=== PATIENT | female | born 1960 | race Caucasian/White ===

== ENCOUNTER 2018-06-18 12:23 | Day surgery (SDC) | payer MEDICARE ==
[~2018-06-18 12:23] MED LIST: BUPIV. HCL 0.5% (5MG/ML)/EPI. (1:200,000) PF 30 ML VIAL IJ ONE; DEXAMETHASONE SODIUM PHOSPHATE 10 MG/ML VIAL ONE; GELATIN SPONGE,ABSORB/PORCINE (SIZE 100) 1 EACH SPONGE TP ONE; GLYCOPYRROLATE 0.2 MG/1 ML 1 ML ONE; LACTATED RINGERS 1,000 ML IV.SOLN IV ONE; LEVALBUTEROL NEB 1.25 MG/3 ML VIAL.NEB NEB ONE; LIDOCAINE HCL 2% PF 100MG/5ML VIAL IJ ONE; MIDAZOLAM HCL 2 MG/2 ML VIAL ONE; NORMAL SALINE 1,000 ML IV.SOLN IV ONE; ONDANSETRON HCL/PF 4 MG/ 2ML VIAL ONE; PROPOFOL 200 MG/20 ML VIAL IV ONE; ROCURONIUM BROMIDE 10 MG/ML 5ML VIAL ONE; SEVOFLURANE 250 ML LIQUID IH ONE; SUGAMMADEX SODIUM 200 MG/2 ML VIAL IV ONE; THROMBIN (BOVINE) 20,000 UNIT VIAL TP ONE; ceFAZolin SODIUM 1 GM VIAL ONE; methylPREDNISolone ACETATE 80 MG/ML VIAL IM ONE
[2018-06-18] MEDS ORDERED: fentaNYL CITRATE/PF 100 MCG/2 ML INJ. ONE (18:05)
--- NOTE | 2018-08-10 13:57 | Operative Note ---
PREOPERATIVE DIAGNOSIS: Lumbar spinal stenosis, L3-4, with bilateral foraminal stenosis. POSTOPERATIVE DIAGNOSIS: Lumbar spinal stenosis, L3-4, with bilateral foraminal stenosis. PROCEDURES PERFORMED: 1. Left-sided laminotomy, L3-4, with foraminotomy and partial facetectomy. 2. Left-sided exposure, right-sided sublaminar laminotomy with foraminotomy and partial facetectomy. 3. Use of operating microscope and microsurgical technique. 4. Intraoperative fluoroscopy and interpretation for needle placement. 5. Lumbar epidural steroid injection. SURGEON: Juan Foster Jr., M.D. GYMNASTIC TEACHER: None. ANESTHESIA: General. COMPLICATIONS: None. CONDITION FOLLOWING THE PROCEDURE: Good. OPERATIVE FINDINGS: This patient is suffering from severe stenosis centrally in the bilateral neural foramen at the L3-4 level. She is counseled regarding options, having failed prolonged conservative management, and today is undergoing laminotomy, foraminotomy and decompression using minimally invasive techniques. DESCRIPTION OF PROCEDURE: The patient is taken to the operating room and general anesthetic induced. The patient was placed in the prone position and the back was thoroughly scrubbed, sterilely prepped and draped. C-arm fluoroscopy was brought into position to identify the surgical level. A Tuohy needle was then placed adjacent to the paraspinous process of the lumbar spine and driven down to the base of the posterior spinous process. X-rays were taken to confirm vertical direction of the needle and identification of the L3-4 level for surgical care. When the Touhy needle was found to be placed and replaced in the ideal position, skin blankenship were made and the skin was infiltrated with 0.5% Marcaine with epinephrine. A 2-cm transverse incision was then made adjacent to the affected side of the lumbar spine at the affected level. The scalpel blade was then inserted through the subcutaneous tissue and, in a vertical direction, the lumbar fascia was incised through the transverse incision of the skin. Next, the smallest obturator for the cylindrical retractor set was inserted into the skin and through the division of the lumbar fascia down to the palpable inferior aspect of the lamina of the affected level. This was followed by progressive dilators and ended with a cylindrical retractor being placed down to the affected lamina. Its accurate placement was again confirmed radiographically by AP and lateral x-rays intraoperatively. The dilators were then removed, leaving the cylindrical retractor in place at the desired surgical level. High power magnification was then brought into the surgical field and utilized through the cylindrical retractor for the following microsurgical technique application and dissection. The thin muscular cuff remaining over the lamina was removed with a combination of pituitary rongeurs and electrocautery to control hemostasis. Typically, both monopolar and bipolar electrocautery are used for this purpose. The inferior aspect of the lamina then received a [place] retractor and C-arm fluoroscopy was again brought into position to confirm medial placement and visualization of the lamina as well as to reconfirm the affected level is accurately identified for the surgical procedure to follow. Once this was confirmed, a high-speed keenan was inserted and the posterior aspect of the lamina and base of the posterior spinous process began to be thinned down until just passing through the anterior aspect of the lamina, thus both visualizing and palpating the thick ligamentum flavum over the dural sac. There was deemed to be adequate exposure over the area affected for surgery and resection with the high-speed keenan continued until well above the superior margin of the disc space. A combination of 2- and 3-mm Kerr[place] rongeurs were then used to remove the remaining thin wisp of anterior lamina and portions of the posterior spinous process until there was wide exposure in the desired area for surgical care. The ligamentum flavum was then freed from the superior margin which was identified by the initiation of bleeding, marking the origin of the ligamentum flavum superiorly. The ligamentum flavum was from the lamina at this point and reflected inferiorly. Kerrison rongeurs were then used to resect all of the ligamentum flavum, exposing the dural sac. Using the Kerrison rongeurs, the foraminotomy was performed on the surgical side until there was adequate room as demonstrated by passage of the Marvin probe into the neural foramen. This required a resection of bony spicules, osteophytes, and hypertrophic ligamentum flavum within the spinal canal and neural foramen to confirm adequate relief of the exiting nerve root as well as the nerve root passing by the axilla, destined for next level emergence. A combination of bipolar electrocautery, Gelfoam and thrombin were used to control hemostasis as needed. Attention was directed in the opposite direction toward the opposite side of the spinal canal and ligamentum flavum was resected from the anterior aspect of the lamina on the opposite side to provide additional central decompression. At this point, thrombin was placed directly on the dura and allowed to remain for one minute, and then the excess removed. 40 mg of Depo- Medrol was then instilled over the dura and exposed nerve root. This was followed by a small piece of Gelfoam which covered the laminotomy site, which had been soaked in thrombin. The cylindrical tract was then gradually removed and any area of hemorrhage received electrocautery treatment. The lumbar fascia was then approximated with 0-Vicryl and a subcuticular closure of the subcutaneous and skin was then approximated with Steri-Strips. 15 cc of 0.5% Marcaine with epinephrine was then instilled into the muscular tissue and subcutaneous layer at all four quadrants of the incision to aid in postoperative analgesia. A dressing was applied and the patient was then taken to the recovery room in good condition. During decompression posteriorly, microsurgical high speed keenan use continued in the contralateral direction, removing sufficient posterior spinous process base and anterior lamina on the contralateral side to leave a cuff of ligamentum flavum covering the dura. Then all ligamentum flavum was resected until the neural foramen on the opposite side was also visualized. [place] rongeurs under direct visualization and protecting the dura with cottonoids was performed to allow direct visualization and decompression of the opposite neural foramen, again until a Marvin probe would pass adequately and completely out the neural foramen without significant impingement. JUAN FOSTER JR., M.D. RAMAKRISHNA/mandie (Please copy SA provider when applicable) Job #[id number]
== END 2018-06-18 18:48 | disposition home or self-care (01) ==
LOC: OPSURG 12:23
PROVIDERS: ATTEND Orthopaedic Surgery
DX: M48.061 Spinal stenosis, lumbar region without neurogenic claudication (principal); M25.78 Osteophyte, vertebrae
CPT/HCPCS: J0690; J1040; J2001; J2250; J2405; J2704; J3010; J3490; J7614; J7030; J7120